=== PATIENT | male | born 1980 | race Caucasian/White ===

== ENCOUNTER 2017-10-14 18:36 | Inpatient (IN) | payer OTHER ==
[~2017-10-14] VITALS: Ht 175.3 cm; Wt 79.4 kg
[2017-10-14 19:29] LABS: BASOPHILS ABSOLUTE AUTO 0.03 K/mm3 (0.00-0.23); BASOPHILS PERCENT AUTO 0 % (0-2); EOSINOPHILS ABSOLUTE AUTO 0.04 K/mm3 (0.00-0.68); EOSINOPHILS PERCENT AUTO 0 % (0-6); Hematocrit 44.6 % (37.0-53.0); Hemoglobin 15.4 g/dL (13.5-17.5); IMMATURE GRAN ABSOLUTE AUTO 0.08 K/mm3 (0.00-0.10); IMMATURE GRAN PERCENT AUTO 1 % (0-1); LYMPHOCYTES ABSOLUTE AUTO 2.26 K/mm3 (0.84-5.20); LYMPHOCYTES PERCENT AUTO 15 % (21-46); MONOCYTES ABSOLUTE AUTO 1.72 K/mm3 (0.16-1.47); MONOCYTES PERCENT AUTO 11 % (4-13); Mean Corpuscular HGB 31.6 pg (26.0-34.0); Mean Corpuscular HGB Conc 34.5 g/dL (31.5-36.5); Mean Corpuscular Volume 92 fL (80-100); NEUTROPHILS ABSOLUTE AUTO 11.16 K/mm3 (1.96-9.15); NEUTROPHILS PERCENT AUTO 73 % (41-73); Platelet Count 216 K/mm3 (150-400); RDW Coefficient Variation 12.7 % (11.7-14.2); RDW Standard Deviation 42.8 fL (35.1-46.3); Red Blood Cell Count 4.87 M/mm3 (4.30-5.90); White Blood Cell Count 15.29 K/mm3 (4.00-11.30)
[2017-10-14 19:42] LABS: International Normalized Ratio 1.11; Prothrombin Time Results 11.4 Sec (9.7-11.5)
[2017-10-14 19:50] LABS: Alanine Aminotransfer (ALT/SGP 18 U/L (12-78); Albumin, Blood 3.4 g/dL (3.4-5.0); Albumin/Globulin Ratio 0.9 (0.8-1.8); Alk Phos 63 U/L (50-136); Anion Gap 9 mmol/L (6-16); Aspartate Aminotrans (AST/SGOT 20 U/L (12-37); Bilirubin, Total 0.4 mg/dL (0.1-1.0); Blood Urea Nitrogen 13 mg/dL (8-24); Bun/Creatinine Ratio 12.9 (12.0-20.0); CO2, Blood 25 mmol/L (21-32); Calcium, Blood 8.4 mg/dL (8.5-10.1); Chloride, Blood 106 mmol/L (98-108); Creatinine, Blood 1.01 mg/dL (0.60-1.20); Globulin, Blood 3.6 g/dL (2.2-4.0); Glomerular Filtration Rate >60 (60-); Glucose, Blood 95 mg/dL (70-99); Potassium, Blood 3.6 mmol/L (3.5-5.5); Sodium, Blood 140 mmol/L (136-145)
[2017-10-15 04:39] LABS: Hematocrit 42.8 % (37.0-53.0); Hemoglobin 14.5 g/dL (13.5-17.5); Mean Corpuscular HGB 31.1 pg (26.0-34.0); Mean Corpuscular HGB Conc 33.9 g/dL (31.5-36.5); Mean Corpuscular Volume 92 fL (80-100); Mean Platelet Volume 10.9 fL (9.1-12.4); Platelet Count 200 K/mm3 (150-400); Red Blood Cell Count 4.66 M/mm3 (4.30-5.90); White Blood Cell Count 12.67 K/mm3 (4.00-11.30)
[2017-10-15 10:11] LABS: Source, Urine Clean Catch
[2017-10-15 10:31] LABS: Bilirubin, Urine Neg (Neg); Blood, Urine 1+ (Neg); Glucose Qualitative, Urine Neg (Neg); Ketones, Urine Neg (Neg); Leukocyte Esterase, Urine Neg (Neg); Nitrite, Urine Neg (Neg); Protein, Urine 1+ (Neg); Specific Gravity, Urine 1.025 (1.003-1.022); Urobilinogen, Urine NORM (Normal)
[2017-10-15 10:40] LABS: Appearance, Urine Clear (Clear); Color, Urine Yellow (P-Yellow)
[2017-10-15 10:46] LABS: Red Blood Cells, Urine 0-2 /hpf (0-2)
[2017-10-15 10:47] LABS: Bacteria Rare /hpf; Squamous Epithelial Cells Not Seen /hpf (Few)
[2017-10-16 12:49] LABS: Vancomycin, Trough 13.6 ug/mL (5.0-10.0)
[2017-10-17] MEDS ORDERED: SACC250C PO (12:29)
[2017-10-17] MEDS ORDERED: Clindamycin HC300 MG PO (12:30)
== END 2017-10-17 13:22 | disposition home or self-care (01) | DRG 872 ==
LOC: ER 18:36 → MEDS 21:02 → ENPENDDIS 10-17 12:38 → MEDS 10-17 13:22
PROVIDERS: Emergency Medicine; Internal Medicine
DX: A41.02 Sepsis due to Methicillin resistant Staphylococcus aureus (principal); L03.116 Cellulitis of left lower limb; F17.210 Nicotine dependence, cigarettes, uncomplicated
CPT/HCPCS: 36415; 73701; 80053; 80202; 81001; 82565; 83605; 85025; 85027; 85610; 85730; 87040; 87070; 87075; 87077; 87147; 87186; 87205; 96361; 96365; 96367; 96375; 99284-25; J0690; J0696; J1885; J2405; J3010; J3370; J7030; Q9967

== ENCOUNTER 2017-11-14 11:23 | Emergency (ER) | payer OTHER ==
[~2017-11-14] VITALS: Ht 175.3 cm; Wt 81.7 kg
[~2017-11-14 11:23] MED LIST: Clindamycin HC300 MG PO; SACC250C PO
[2017-11-14] MEDS ORDERED: CEPH500 PO (12:14)
[2017-11-14] MEDS ORDERED: Bactrim Ds Tab1 EACH PO (12:14)
== END 2017-11-14 12:25 | disposition home or self-care (01) ==
LOC: ER 11:23
DX: L02.214 Cutaneous abscess of groin (principal); F17.210 Nicotine dependence, cigarettes, uncomplicated
CPT/HCPCS: 10060; 99282-25

== ENCOUNTER 2017-12-21 16:13 | Emergency (ER) | payer OTHER ==
[~2017-12-21] VITALS: Ht 175.3 cm; Wt 79.4 kg
[~2017-12-21 16:13] MED LIST changes: +Bactrim Ds Tab1 EACH PO; +CEPH500 PO
[2017-12-21] MEDS ORDERED: ALBU90OI INH (17:27)
[2017-12-21] MEDS ORDERED: Tylenol W/Code120 ML PO (17:27)
[2017-12-21] MEDS ORDERED: Prednisone20 MG PO (17:27)
== END 2017-12-21 17:33 | disposition home or self-care (01) ==
LOC: ER 16:13
DX: J40 Bronchitis, not specified as acute or chronic (principal); F17.210 Nicotine dependence, cigarettes, uncomplicated
CPT/HCPCS: 71046; 94640; 99283-25

== ENCOUNTER 2018-03-31 15:05 | Emergency (ER) | payer OTHER ==
[~2018-03-31] VITALS: Ht 170.2 cm; Wt 74.8 kg
[~2018-03-31 15:05] MED LIST changes: +ALBU90OI INH; +Prednisone20 MG PO; +Tylenol W/Code120 ML PO
[2018-03-31] MEDS ORDERED: Norco 5-325 Ta1 EACH PO (15:54)
[2018-03-31] MEDS ORDERED: CYCL10 PO (15:54)
== END 2018-03-31 16:03 | disposition home or self-care (01) ==
LOC: ER 15:05
DX: S01.511A Laceration without foreign body of lip, initial encounter (principal); S20.212A Contusion of left front wall of thorax, initial encounter; S60.221A Contusion of right hand, initial encounter; S00.12XA Contusion of left eyelid and periocular area, initial encounter; F17.210 Nicotine dependence, cigarettes, uncomplicated; Y04.2XXA Assault by strike against or bumped into by another person, initial encounter
CPT/HCPCS: 71101; 73130; 99283-25

== ENCOUNTER 2018-06-16 08:39 | Emergency (ER) | payer OTHER ==
[~2018-06-16] VITALS: Ht 175.3 cm; Wt 79.4 kg
[~2018-06-16 08:39] MED LIST changes: +CYCL10 PO; +Norco 5-325 Ta1 EACH PO
[2018-06-16] MEDS ORDERED: PRED10 PO (09:52)
[2018-06-16] MEDS ORDERED: Robaxin500 MG PO (09:52)
[2018-06-16] MEDS ORDERED: Percocet 5-3251 EACH PO (09:52)
== END 2018-06-16 10:07 | disposition home or self-care (01) ==
LOC: ER 08:39
DX: G89.29 Other chronic pain (principal); M54.5 Low back pain; F17.210 Nicotine dependence, cigarettes, uncomplicated
CPT/HCPCS: 96372; 99283-25; J1885